=== PATIENT | female | born 1945 | race Caucasian/White ===

== ENCOUNTER 2022-04-06 13:21 | Outpatient (CLI) | payer MEDICARE, OTHER | END 2022-04-06 13:22 | disposition home or self-care (01) | LOC: SCSMRI 13:21 | PROVIDERS: ATTEND Internal Medicine Hematology & Oncology | DX: C18.2 Malignant neoplasm of ascending colon (principal); R93.2 Abnormal findings on diagnostic imaging of liver and biliary tract; K80.20 Calculus of gallbladder without cholecystitis without obstruction; K83.8 Other specified diseases of biliary tract | CPT/HCPCS: 74183; 82565 ==

== ENCOUNTER 2022-04-13 13:15 | Inpatient (IN) | payer MEDICARE ==
[2022-04-14 12:27] VITALS: BMI 25.8
[2022-04-15] MEDS ORDERED: Midazolam HCl 2 mg/2 ml Vial ONE (09:51)
[2022-04-15] MEDS ORDERED: Fentanyl 100 MCG/2 ML VIAL ONE ×3 (09:51→15:58)
[2022-04-15] MEDS ORDERED: SUGAMMADEX SODIUM 200 MG/2 ML VIAL ONE (10:20)
[2022-04-15] MEDS ORDERED: Famotidine/PF 20 mg/2ml Vial ONE (10:20)
[2022-04-15] MEDS ORDERED: fentaNYL PF 100 MCG/2 ML SYRINGE ONE (10:20)
[2022-04-15] MEDS ORDERED: Sodium Chloride 0.9% 100 ML ONE (10:27)
[2022-04-15] MEDS ORDERED: cefOXitin 2 GM VIAL ONE (10:27)
[2022-04-15] MEDS ORDERED: Metoclopramide HCl 10 MG/2 ML VIAL ONE (10:58)
[2022-04-15] MEDS ORDERED: Bupivacaine HCl 0.5%/Epinephrine 1:200,000/PF 30 ml Vial ONE (10:58)
[2022-04-15] MEDS ORDERED: PROPOFOL 200 MG/20 ML VIAL ONE (10:58)
[2022-04-15] MEDS ORDERED: Lidocaine 1% MPF 2 ML VIAL ONE (10:58)
[2022-04-15] MEDS ORDERED: Ketorolac Tromethamine 30 MG/ML VIAL ONE (10:58)
[2022-04-15] MEDS ORDERED: Phenylephrine 10 MG/ML VIAL ONE (10:58)
[2022-04-15] MEDS ORDERED: Dexamethasone 20 MG/5 ML VIAL ONE (10:58)
[2022-04-15] MEDS ORDERED: Ondansetron PF 4 MG/2 ML Vial ONE (10:58)
[2022-04-15] MEDS ORDERED: Rocuronium Bromide 10 MG/ML (10ML VIAL) ONE (10:58)
[2022-04-15] MEDS ORDERED: hydrALAZINE 20 MG/ML VIAL SLOW IVP PRN (14:01)
[2022-04-15] MEDS ORDERED: Fentanyl 100 MCG/2 ML VIAL SLOW IVP PRN ×2 (14:01)
[2022-04-15] MEDS ORDERED: Lorazepam 0.5 MG TAB PO PRN (14:01)
[2022-04-15] MEDS: D5 1/2 NS w/20 mEq KCL 1,000 ML IV SCH (18:26)
[2022-04-15] MEDS: Phenytoin Extended Release 100 MG CAP PO SCH ×2 (18:26→20:19)
[2022-04-15] MEDS: Famotidine 20 MG TAB PO SCH (20:19)
[2022-04-15] MEDS: cefOXitin Sodium 1 GM in Sodium Chloride 0.9% 100 ML IVPB SCH (20:20)
[2022-04-15] MEDS: Famotidine/PF 20 mg/2ml Vial SLOW IVP SCH (20:27)
[2022-04-15] MEDS: HYDROcodone/Acetaminophen 7.5/325 mg Tablet PO PRN (22:55)
[2022-04-16] MEDS: D5 1/2 NS w/20 mEq KCL 1,000 ML IV SCH ×5 (00:52→22:37)
[2022-04-16] MEDS: cefOXitin Sodium 1 GM in Sodium Chloride 0.9% 100 ML IVPB SCH (03:13)
[2022-04-16 05:50] LABS: #Eosinphils 0.1 thou/uL (0.0-0.7); #Lymphocytes 1.2 thou/uL (1.20-3.40); #Neutrophils 11.5 thou/uL (1.40-6.50); %Basophils 0.2 % (0.0-1.0); %Eosinophils 0.7 % (0.0-10.0); %Lymphocytes 8.3 % (21.0-51.0); %Monocytes 7.2 % (0.0-10.0); %Neutrophils 83.7 % (42.0-75.0); Hemoglobin 9.7 g/dL (12.0-16.0); Mean Corpuscular HGB CONC 31.6 g/dL (32.0-36.0); Mean Corpuscular Hemoglobin 26.4 pg (27.0-31.0); Mean Corpuscular Volume 83.3 fL (78.0-98.0); Mean Platelet Volume 7.4 fL (7.4-10.4); Platelet Count 281 thou/uL (130-400); RBC Distribution Width 13.9 % (11.5-14.5); Red Blood Cell (RBC) Count 3.67 mill/uL (4.20-5.40); White Blood Cell (WBC) Count 13.8 thou/uL (4.8-10.8)
[2022-04-16] MEDS: HYDROcodone/Acetaminophen 7.5/325 mg Tablet PO PRN ×3 (05:56→16:10)
[2022-04-16 06:05] LABS: Anion Gap 14 mmol/L (10-20); BUN (Urea Nitrogen) 5 mg/dL (9.8-20.1); Calc. Creatinine Clearance 82 mL/min (70-130); Calcium 8.2 mg/dL (7.8-10.44); Carbon Dioxide 21 mmol/L (23-31); Chloride 105 mmol/L (98-107); Estimated GFR 85; Glucose 151 mg/dL (83-110); Potassium 3.6 mmol/L (3.5-5.1); Sodium 136 mmol/L (136-145)
[2022-04-16] MEDS: Enoxaparin Sodium 40 MG/0.4 ML SYRINGE SC SCH (08:20)
[2022-04-16] MEDS: Famotidine/PF 20 mg/2ml Vial SLOW IVP SCH ×2 (08:20→20:23)
[2022-04-16] MEDS: Phenytoin Extended Release 100 MG CAP PO SCH ×3 (08:20→20:23)
[2022-04-16] MEDS: Famotidine 20 MG TAB PO SCH ×2 (08:26→20:27)
[2022-04-16] MEDS: Ondansetron PF 4 MG/2 ML Vial IVP PRN ×2 (16:47→22:37)
[2022-04-16] MEDS: Promethazine HCl 25 MG/ML VIAL IM PRN ×2 (18:29→23:09)
[2022-04-16] MEDS ORDERED: Mag-Al 1200 mg/1200 mg/30 ML UDCUP PO PRN (19:42)
[2022-04-17] MEDS: Ketorolac Tromethamine 30 MG/ML VIAL IVP PRN (02:04)
[2022-04-17] MEDS ORDERED: Metoclopramide HCl 10 MG/2 ML VIAL IVP PRN (05:29)
[2022-04-17] MEDS: Scopolamine 1.5 mg/72 hour Patch TOP SCH (05:41)
[2022-04-17] MEDS: D5 1/2 NS w/20 mEq KCL 1,000 ML IV SCH ×3 (07:17→20:46)
[2022-04-17] MEDS: Enoxaparin Sodium 40 MG/0.4 ML SYRINGE SC SCH (08:45)
[2022-04-17] MEDS: Famotidine/PF 20 mg/2ml Vial SLOW IVP SCH ×2 (08:46→20:48)
[2022-04-17] MEDS: Phenytoin Extended Release 100 MG CAP PO SCH ×5 (08:47→20:48)
[2022-04-17] MEDS: Famotidine 20 MG TAB PO SCH ×2 (08:52→21:41)
[2022-04-17] MEDS: Promethazine HCl 25 MG/ML VIAL IM PRN ×2 (10:12→21:41)
[2022-04-17] MEDS: Ondansetron PF 4 MG/2 ML Vial IVP PRN (20:48)
[2022-04-18] MEDS: Calcium Carbonate 500 MG ChewTAB PO PRN ×3 (01:14→20:27)
[2022-04-18] MEDS: Promethazine HCl 25 MG/ML VIAL IM PRN ×2 (02:21→22:56)
[2022-04-18] MEDS: Ondansetron PF 4 MG/2 ML Vial IVP PRN ×3 (06:19→20:29)
[2022-04-18] MEDS: D5 1/2 NS w/20 mEq KCL 1,000 ML IV SCH ×2 (06:19→14:32)
[2022-04-18] MEDS: Phenytoin Extended Release 100 MG CAP PO SCH ×3 (08:57→20:28)
[2022-04-18] MEDS: Famotidine 20 MG TAB PO SCH ×2 (08:57→20:28)
[2022-04-18] MEDS: Enoxaparin Sodium 40 MG/0.4 ML SYRINGE SC SCH (08:58)
[2022-04-18] MEDS: Famotidine/PF 20 mg/2ml Vial SLOW IVP SCH ×2 (08:58→21:00)
[2022-04-18 14:02] LABS: Anion Gap 14 mmol/L (10-20); BUN (Urea Nitrogen) 6 mg/dL (9.8-20.1); Calc. Creatinine Clearance 95 mL/min (70-130); Calcium 8.8 mg/dL (7.8-10.44); Carbon Dioxide 22 mmol/L (23-31); Chloride 101 mmol/L (98-107); Estimated GFR 92; Glucose 140 mg/dL (83-110); Magnesium 1.7 mg/dL (1.6-2.6); Potassium 4.5 mmol/L (3.5-5.1); Sodium 132 mmol/L (136-145)
[2022-04-18] MEDS: Ketorolac Tromethamine 30 MG/ML VIAL IVP PRN (14:48)
[2022-04-18] MEDS: PHOS-NAK 1 PKT PACK PO SCH (20:29)
[2022-04-19] MEDS: Ondansetron PF 4 MG/2 ML Vial IVP PRN (02:43)
[2022-04-19] MEDS: D5 1/2 NS w/20 mEq KCL 1,000 ML IV SCH ×2 (02:43→08:57)
[2022-04-19] MEDS: Famotidine 20 MG TAB PO SCH (05:34)
[2022-04-19] MEDS: Promethazine HCl 25 MG/ML VIAL IM PRN (05:34)
[2022-04-19] MEDS: Enoxaparin Sodium 40 MG/0.4 ML SYRINGE SC SCH (08:30)
[2022-04-19] MEDS: Phenytoin Extended Release 100 MG CAP PO SCH ×3 (08:30→20:10)
[2022-04-19] MEDS: PHOS-NAK 1 PKT PACK PO SCH (08:30)
[2022-04-19] MEDS: Famotidine/PF 20 mg/2ml Vial SLOW IVP SCH (08:57)
[2022-04-19 12:09] LABS: Phosphorus 2.1 mg/dL (2.3-4.7)
[2022-04-19 12:12] LABS: Anion Gap 11 mmol/L (10-20); BUN (Urea Nitrogen) 7 mg/dL (9.8-20.1); Calc. Creatinine Clearance 86 mL/min (70-130); Calcium 8.6 mg/dL (7.8-10.44); Carbon Dioxide 25 mmol/L (23-31); Chloride 95 mmol/L (98-107); Estimated GFR 90; Glucose 114 mg/dL (83-110); Magnesium 1.6 mg/dL (1.6-2.6); Potassium 4.3 mmol/L (3.5-5.1); Sodium 127 mmol/L (136-145)
[2022-04-19] MEDS ORDERED: Potassium Phosphate 15 MMOL in Sodium Chloride 0.9% 100 ML IVPB SCH (13:00)
[2022-04-19] MEDS: Sodium Chloride 0.9% 1,000 ML IV SCH (15:16)
[2022-04-19] MEDS: Ketorolac Tromethamine 30 MG/ML VIAL IVP PRN (15:19)
[2022-04-20] MEDS: Sodium Chloride 0.9% 1,000 ML IV SCH (05:56)
[2022-04-20] MEDS: Scopolamine 1.5 mg/72 hour Patch TOP SCH (06:01)
[2022-04-20 06:09] LABS: Anion Gap 12 mmol/L (10-20); BUN (Urea Nitrogen) 6 mg/dL (9.8-20.1); Calc. Creatinine Clearance 94 mL/min (70-130); Calcium 8.5 mg/dL (7.8-10.44); Carbon Dioxide 21 mmol/L (23-31); Chloride 102 mmol/L (98-107); Estimated GFR 92; Glucose 86 mg/dL (83-110); Phosphorus 3.5 mg/dL (2.3-4.7); Potassium 4.2 mmol/L (3.5-5.1); Sodium 131 mmol/L (136-145)
[2022-04-20] MEDS: Enoxaparin Sodium 40 MG/0.4 ML SYRINGE SC SCH (08:40)
[2022-04-20] MEDS: Phenytoin Extended Release 100 MG CAP PO SCH (08:40)
[2022-04-20 12:05] VITALS: BP 124/64; TEMP 98.1
== END 2022-04-20 12:45 | disposition home or self-care (01) | DRG 330 ==
LOC: SURG A 04-15 08:16
PROVIDERS: ADMIT Surgery; ATTEND Surgery
PROC: 0DTF4ZZ Resection of Right Large Intestine, Percutaneous Endoscopic Approach (ICD-10-PCS; principal; 2022-04-15)
PROC: 8E0W4CZ Robotic Assisted Procedure of Trunk Region, Percutaneous Endoscopic Approach (ICD-10-PCS; 2022-04-15)
DX: C18.2 Malignant neoplasm of ascending colon (principal); K35.80 Unspecified acute appendicitis; Z20.822 Contact with and (suspected) exposure to COVID-19; D12.2 Benign neoplasm of ascending colon; Z79.899 Other long term (current) drug therapy; Z79.890 Hormone replacement therapy; Z90.13 Acquired absence of bilateral breasts and nipples
CPT/HCPCS: 36415; 36416; 80048; 82378; 83036; 83735; 84100; 85025; 87811; 88309; 93005; 93010; J0694; J1100; J1650; J1885; J2250; J2370; J2405; J2550; J2704; J2765; J3010; J3480; J3490; J7050; S0028

== ENCOUNTER 2022-06-24 10:54 | Day surgery (SDC) | payer MEDICARE ==
[2022-06-23 14:05] VITALS: BMI 24.3
[2022-06-24] MEDS ORDERED: fentaNYL PF 100 MCG/2 ML SYRINGE ONE (12:10)
[2022-06-24] MEDS ORDERED: CEFAZOLIN 2 GM VIAL ONE (12:11)
[2022-06-24] MEDS ORDERED: Sodium Chloride 0.9% 100 ML ONE (12:11)
[2022-06-24] MEDS ORDERED: Lidocaine 1% (PF) 30 ML VIAL ONE (12:17)
[2022-06-24] MEDS ORDERED: Bupivacaine/Epinephrine 0.25% 30 ML VIAL ONE (12:17)
[2022-06-24] MEDS ORDERED: PROPOFOL 200 MG/20 ML VIAL ONE (12:33)
[2022-06-24] MEDS ORDERED: Dexamethasone 20 MG/5 ML VIAL ONE (12:33)
[2022-06-24] MEDS ORDERED: Ondansetron PF 4 MG/2 ML Vial ONE (12:33)
== END 2022-06-24 14:50 | disposition home or self-care (01) ==
LOC: SDC 10:54
PROVIDERS: ATTEND Surgery
PROC: 0JH60WZ Insertion of Totally Implantable Vascular Access Device into Chest Subcutaneous Tissue and Fascia, Open Approach (ICD-10-PCS; principal; 2022-06-24)
PROC: 02HV33Z Insertion of Infusion Device into Superior Vena Cava, Percutaneous Approach (ICD-10-PCS; 2022-06-24)
DX: C18.9 Malignant neoplasm of colon, unspecified (principal); Z79.890 Hormone replacement therapy; Z79.899 Other long term (current) drug therapy; Z90.49 Acquired absence of other specified parts of digestive tract
CPT/HCPCS: 36561; 71045; C1788; J1100; J1642; J2001; J2405; J2704; J3490

== ENCOUNTER 2023-04-27 08:29 | Outpatient (CLI) | payer MEDICARE ==
[2023-04-27] MEDS ORDERED: Iopamidol 370 76% 100 ML VIAL ONE (15:10)
== END 2023-04-27 08:30 | disposition home or self-care (01) ==
LOC: CT 08:29
PROVIDERS: ATTEND Internal Medicine Hematology & Oncology
DX: C18.2 Malignant neoplasm of ascending colon (principal)
CPT/HCPCS: 71260; 74177; 82565; Q9967

== ENCOUNTER 2023-05-12 10:15 | Outpatient (CLI) | payer MEDICARE | END 2023-05-12 10:16 | disposition home or self-care (01) | LOC: PET 10:15 | PROVIDERS: ATTEND Internal Medicine Hematology & Oncology | DX: C18.2 Malignant neoplasm of ascending colon (principal); R93.5 Abnormal findings on diagnostic imaging of other abdominal regions, including retroperitoneum | CPT/HCPCS: 78815; A9552 ==

== ENCOUNTER 2023-10-18 11:00 | Outpatient (CLI) | payer MEDICARE | END 2023-10-18 11:01 | disposition home or self-care (01) | LOC: PET 11:00 | PROVIDERS: ATTEND Internal Medicine Hematology & Oncology | DX: C18.2 Malignant neoplasm of ascending colon (principal); C78.7 Secondary malignant neoplasm of liver and intrahepatic bile duct | CPT/HCPCS: 78815; A9552 ==

== ENCOUNTER 2024-04-17 08:00 | Outpatient (CLI) | payer MEDICARE | END 2024-04-17 08:01 | disposition home or self-care (01) | LOC: PET 08:00 | PROVIDERS: ATTEND Internal Medicine Hematology & Oncology | DX: C18.2 Malignant neoplasm of ascending colon (principal); C78.7 Secondary malignant neoplasm of liver and intrahepatic bile duct | CPT/HCPCS: 78815; A9552 ==

== ENCOUNTER 2025-07-12 08:00 | Outpatient (CLI) | payer MEDICARE | END 2025-07-12 08:01 | disposition home or self-care (01) | LOC: PET 08:00 | PROVIDERS: ATTEND Internal Medicine Hematology & Oncology | DX: C18.2 Malignant neoplasm of ascending colon (principal); D50.9 Iron deficiency anemia, unspecified; D70.8 Other neutropenia; E88.9 Metabolic disorder, unspecified; K66.8 Other specified disorders of peritoneum; Z79.899 Other long term (current) drug therapy | CPT/HCPCS: 78815; A9552 ==